=== PATIENT | female | born 2000 | race Caucasian/White ===

== ENCOUNTER 2020-12-13 09:19 | Emergency (ER) | payer OTHER ==
[~2020-12-13] VITALS: Ht 157.5 cm; Wt 45.4 kg
== END 2020-12-13 12:11 | disposition home or self-care (01) ==
LOC: ER 09:19
DX: K29.60 Other gastritis without bleeding (principal)

== ENCOUNTER 2024-07-13 13:27 | Emergency (ER) | payer OTHER ==
[~2024-07-13] VITALS: Ht 157.5 cm; Wt 54.4 kg
[2024-07-13] MEDS ORDERED: POVIDONE-IODINE 118 ML BOTT TOP ONE (14:50)
[2024-07-13] MEDS ORDERED: LIDOCAINE HCL 1% 10ML VIAL ONE (14:50)
[2024-07-13] MEDS ORDERED: DIPHTH,PERTUSS(ACELL),TET VAC 0.5 ML SYRINGE IM ONE (15:15)
[2024-07-13] MEDS ORDERED: TETANUS & DIPHTHERIA TOX,ADULT 0.5 ML VIAL IM ONE (15:15)
[2024-07-13] MEDS ORDERED: CEPHALEXIN500 MG PO (15:25)
== END 2024-07-13 17:23 | disposition home or self-care (01) ==
LOC: ER 13:44
DX: S64.493A Injury of digital nerve of left middle finger, initial encounter (principal); W25.XXXA Contact with sharp glass, initial encounter; Y93.89 Activity, other specified; Y92.89 Other specified places as the place of occurrence of the external cause; Y99.9 Unspecified external cause status